=== PATIENT | male | born 1995 | race Caucasian/White ===

== ENCOUNTER 2019-11-05 08:42 | Emergency (ER) | payer SELFPAY ==
[2019-11-05 08:47] VITALS: BP 129/88; PULSE 70; RESP 16; TEMP 36.4; O2SAT 100; BMI 21.1
--- NOTE | 2019-11-05 09:00 | W.ED.CHESTPA ---
HPI - Chest Pain General: Chief Complaint: Chest Pain Stated Complaint: CHEST PAIN Time Seen by Provider: 11/05/19 08:43 Source: patient Mode of arrival: ambulatory Limitations: no limitations History of Present Illness: HPI narrative: Patient is a 24-year-old male who presents to ED today with complaints of left-sided chest pain that patient initially noticed 2 days ago. Patient tells me pain began at rest and seems to be episodic. Patient tells me he can get pain to fully alleviate if he lies down for at least an hour and rests . He tells me pain seems to be worse with vaping, deep inhalation, and when I get up and move around . He does not complain of a cough, shortness of breath, difficulty breathing, palpitations, excercise intolerance, pre-syncope/syncope, fevers, lightheadedness/dizziness. He denies personal or family cardiac history. Patient has no history of IV drug use. No recent infections. Patient is an otherwise healthy male with no known PMH. He currently does not take any medications. MD complaint: chest pain Onset (ago): day(s) Timing of current episode: episodic Prior episodes: No Pain location: left chest Pain radiation: none Severity: mild Relieving factors: other (lying down) Exacerbating factors: inspiration and movement Associated symptoms: Deny abdominal pain, dyspnea, fever(s), nausea, palpitations, syncope or vomiting Risk Factors: Coronary artery disease risk factors: smoking history Thoracic aortic dissection risk factors: none Review of Systems General: Reports: 10 or more systems reviewed and unremarkable except in HPI and below Const: Denies: fever, chills, body aches, fatigue, malaise or night sweats Eyes: Denies: change in vision, blurry vision or photophobia ENMT: Denies: painful swallowing Card: Reports: chest pain; Denies: palpitations, irregular heart rhythm, edema, swelling of feet/ankles, lightheadedness, syncope, pre-syncope, shortness of breath on exertion, shortness of breath when lying down or leg pain with exertion Resp: Denies: shortness of breath, productive cough, non-productive cough, pain on inspiration, change in phlegm color, coughing up blood or chest congestion GI: Denies: abdominal pain, nausea, vomiting, heartburn/indigestion or diarrhea : Denies: flank pain, difficulty urinating or painful urination Musc: Denies: neck pain, back pain, extremity pain, extremity swelling, joint pain or joint swelling Skin/Breast: Denies: rash or yellow skin Neuro: Denies: headache, numbness in extremities, weakness in extremities or changes in sensation Psych: Denies: anxiety PFSH ED PFSH: Social History Smoking and tobacco status: current every day smoker e-cigarettes E-Cigarette Details: vaporizer device and with nicotine Substance/Drug Use: current Substance/Drug use frequency: few times a week Substance/Drug use type: Marijuana Physical Exam Const: COMMON NORMALS: no apparent distress, average body habitus, oriented x3, no limitations, healthy appearing, alert and well nourished HENMT: COMMON NORMALS: normocephalic and head/scalp atraumatic HEAD & SCALP: normocephalic and atraumatic Neck/C-Spine: COMMON NORMALS: full ROM, no lymphadenopathy and no meningeal signs Chest: COMMONS NORMALS: inspection of chest normal OTHER: does reports some very mild tenderness with palpation of L anterior chest Resp: COMMON NORMALS: normal respiratory effort, no use of accessory muscles and clear to auscultation bilaterally EFFORT & INSPECTION: Yes able to speak in complete sentences AUSCULTATION: clear to auscultation bilaterally OTHER: reports pain is worse with deep inhalation Cardio: COMMON NORMALS: regular rate and regular rhythm RATE: regular rate RHYTHM: regular rhythm GI: COMMON NORMALS: soft to palpation, non-tender and no masses PALPATION: Yes soft Back/Pelvis: COMMON NORMALS: thoracic and lumbar spine normal to inspection, no thoracic nor lumbar tenderness and thoraco-lumbar ROM normal Neuro: COMMON NORMALS: oriented x3 SENSORIUM/ORIENTATION: Yes alert MENINGEAL SIGNS: Yes no meningeal signs Course Vital Signs: Vital signs: Vital Signs Temperature 97.5 F L 11/05/19 08:47 Pulse Rate 70 11/05/19 08:47 Respiratory Rate 16 11/05/19 08:47 Blood Pressure 129/88 11/05/19 08:47 Pulse Oximetry 100 11/05/19 08:47 MDM - Chest Pain MDM Narrative: Medical decision making narrative: Patient is an otherwise healthy 24-year-old here for chest pain that is alleviated with lying flat and resting and worsened with vaping, deep inhalation, and movement. I have no concerns at this time for cardiac ischemia, pericarditis, endocarditis, PE, pneumothorax, dissection, boerhaave syndrome, GI related causes, or congenital heart defects/cardiomyopathy. Pts EKG is non-concerning. CXR is normal. Recommend he follow up with PCP for continued symptoms. Return to ED precautions given. Imaging Data^: CXR: Radiologist's impression: [address] [address] XRay Report Signed Patient: Ab Ortiz Unit #: [id number] : 1995 Age/Sex: 24 / M ADM Date: 11/05/19 Loc: ER Room/Bed: Attending Dr: Ordering Provider/Ordering MD: Flavia Bennett Date of Service: 11/05/19 Procedure(s): XR chest 1V portable [id number] Accession Number(s): [id number] Report Number: [id number] WS: [id number] PORTABLE CHEST HISTORY: cough/congestion COMPARISON: None available. Lungs are clear and well expanded. No pleural effusion or pneumothorax. Cardiac size: Normal. Mediastinum/Aorta: Normal mediastinum. No osseous abnormality seen. XR/XR chest 1V portable [id number] IMPRESSION: Unremarkable portable chest. Dictated By: Natalya Archer DO Signed By: Natalya Archer DO Signed Date/Time: 11/05/19934 DD/ 4 EKG Data^: EKG 1: EKG interpretation date: 11/05/19 Prior EKG tracings: not available for review Interpretation: Sinus rhythm with sinus arrhythmia Rate 67 ST elevation consistent with early repolarization reviewed along with Dr. Hemphill Discharge Plan Discharge Patient Disposition: Home, Self-Care Clinical Impression: Atypical chest pain Condition: Stable Discharge Orders: Discharge Order (Routine); Ordered 11/05/19 Ordered By: Flavia Bennett Referrals: Krishna Walters DO [Primary Care Provider] - Discharge Diet: Usual diet Discharge Activity: Increase activity as tolerated Patient Instructions: Chest Pain - Noncardiac, Chest Pain - Chest Wall, Noncardiac Chest Pain (ED) Activity Restrictions/Additional Instructions: Discontinue vaping and inhalation of marijuana. Follow up with primary care in 3-5 days if symptoms persist. You may return to the ED for worsening pain, difficulty breathing, passing out episodes, fevers greater than 100.4, or any other concerns you may have. Coding Level of Care Code ED Felt [employer] Machine Operator for Ernesto Fwcheryle Exam Comprehensive
--- NOTE | 2019-11-05 09:01 | XR_ITS ---
WS: [id number] PORTABLE CHEST HISTORY: cough/congestion COMPARISON: None available. Lungs are clear and well expanded. No pleural effusion or pneumothorax. Cardiac size: Normal. Mediastinum/Aorta: Normal mediastinum. No osseous abnormality seen. XR/XR chest 1V portable [id number] IMPRESSION: Unremarkable portable chest.
[2019-11-05 09:40] VITALS: BP 118/62; PULSE 62; RESP 18; TEMP 36.6; O2SAT 99
== END 2019-11-05 09:41 | disposition home or self-care (01) ==
PROVIDERS: Emergency Provider Physician Assistant; PCP Family Medicine
DX: R07.89 Other chest pain (principal); F17.290 Nicotine dependence, other tobacco product, uncomplicated
CPT/HCPCS: 12345; 71045; 99281; 99283